=== PATIENT | female | born 1975 | race Caucasian/White ===

== ENCOUNTER 2024-01-16 10:29 | Emergency (ER) | payer MEDICAID, OTHER ==
[~2024-01-16] VITALS: Ht 160 cm; Wt 140.2 kg
[2024-01-16 10:41] VITALS: BP 177/95; PULSE 68; RESP 19; TEMP 98.6; O2SAT 98
[2024-01-16] MEDS: NACL 0.9% 1,000 ML IV ONE (11:36)
[2024-01-16] MEDS: ONDANSETRON 4 MG/2 ML VIAL IVP ONE (11:38)
[2024-01-16] MEDS: KETOROLAC 30 MG/ML VIAL IVP ONE (11:42)
[2024-01-16 12:15] LABS: BLOOD, URINE 3+ (NEGATIVE); NITRITE, URINE POSITIVE (NEGATIVE); PH,URINE 6.5 (5.0-9.0); PROTEIN,URINE 2+ (NEGATIVE); UGLUCOSE 1+ (NEGATIVE)
[2024-01-16 12:16] LABS: APPEARANCE,URINE CLOUDY (CLEAR)
[2024-01-16 12:17] LABS: COLOR,URINE BLOODY (YELLOW)
[2024-01-16 12:19] LABS: RBC,URINE TOO NUMEROUS TO COUN /HPF (0-5)
[2024-01-16 12:29] LABS: SQUAMOUS EPITHELIAL CELL,UR 0-3 (FEW) /LPF (0-3 (FEW))
[2024-01-16 12:31] LABS: BILIRUBIN,URINE 1+ (NEGATIVE); ICTOTEST NEGATIVE (NEGATIVE)
[2024-01-16 12:33] LABS: BACTERIA,URINE 1+ /HPF (None Seen)
[2024-01-16 12:35] LABS: LEUKOCYTE ESTERASE ,URINE 1+ (NEGATIVE); WBC,URINE 0-5 /HPF (0-5)
[2024-01-16 12:48] LABS: BASOPHILS # (AUTO) 0.1 K/uL (0.00-0.22); BASOPHILS % (AUTO) 0.4 % (0.0-2.0); EOSINOPHILS # (AUTO) 0.1 K/uL (0-0.4); EOSINOPHILS % (AUTO) 0.3 % (0.0-4.0); HEMATOCRIT 40.2 % (36-48); HEMOGLOBIN 13.1 g/dL (12.0-16.0); LYMPHOCYTES # (AUTO) 2.2 K/uL (2.5-16.5); LYMPHOCYTES % (AUTO) 12.3 % (20.5-51.1); MEAN CORPUSCULAR HEMOGLOBIN 29 pg (27-31); MEAN CORPUSCULAR HGB CONC 33 g/dL (33-37); MEAN CORPUSCULAR VOLUME 88.6 fL (80-94); MONOCYTES # (AUTO) 1.3 K/uL (0.8-1.0); NEUTROPHILS # (AUTO) 14.6 K/uL (1.8-7.7); PLATELET COUNT (AUTO) 256 K/uL (140-450); RED BLOOD CELL COUNT(AUTO) 4.53 MIL/uL (4.20-5.40); RED CELL DISTRIBUTION WIDTH 14.9 % (11.6-13.7); WHITE BLOOD COUNT (AUTO) 18.2 K/uL (4.8-10.8)
[2024-01-16 13:04] LABS: ANION GAP 11.3 (8-16); CALCIUM 7.8 mg/dL (8.5-10.1); CARBON DIOXIDE 24.5 mmol/L (21-32); CREATININE 0.7 mg/dL (0.6-1.3); POTASSIUM 3.8 mmol/L (3.5-5.1)
[2024-01-16 13:09] LABS: ALBUMIN 2.5 g/dL (3.4-5.0); TOTAL BILIRUBIN 0.2 mg/dL (0.0-1.0); TOTAL PROTEIN, SERUM 6.6 g/dL (6.4-8.2)
[2024-01-16] MEDS ORDERED: CIPR500T4 PO (13:43)
[2024-01-16] MEDS ORDERED: ACET-8905 PO (13:43)
[2024-01-16] MEDS ORDERED: IBUP-2213 PO (13:43)
[2024-01-16] MEDS ORDERED: ONDA8TAB87 PO (13:43)
[2024-01-16 13:58] VITALS: BP 138/72; PULSE 66; RESP 16; TEMP 98.6; O2SAT 99
[2024-01-19] MEDS ORDERED: NITR100C7 PO (11:29)
== END 2024-01-16 13:58 | disposition home or self-care (01) ==
LOC: MED 10:29
DX: N39.0 Urinary tract infection, site not specified (principal); N20.0 Calculus of kidney; I10 Essential (primary) hypertension; Z90.49 Acquired absence of other specified parts of digestive tract
CPT/HCPCS: 36415; 74176; 80048; 80076; 81001; 81025; 83690; 85025; 87086; 96361; 96374; 96375; 99285; J1885; J2405